=== PATIENT | male | born 1975 | race Caucasian/White ===

== ENCOUNTER 2020-11-27 13:30 | Emergency (ER) | payer OTHER ==
[~2020-11-27] VITALS: Ht 193 cm; Wt 100.0 kg
[2020-11-27] MEDS ORDERED: MULT-1249 PO (13:36)
[2020-11-27 13:37] VITALS: BP 137/88
[2020-11-27] MEDS ORDERED: ASPI-728 PO (13:43)
[2020-11-28 17:25] LABS: COVID AG,FIA SOURCE NASOPHARYNGEAL
== END 2020-11-27 15:24 | disposition short-term general hospital (02) ==
LOC: EMS 13:35
DX: R10.84 Generalized abdominal pain (principal); R51.9 Headache, unspecified; Z20.822 Contact with and (suspected) exposure to COVID-19
CPT/HCPCS: 87426; 99283; C9803; U0003